=== PATIENT | female | born 1990 | race Caucasian/White ===

== ENCOUNTER 2019-06-16 19:42 | Emergency (ER) | payer SELFPAY ==
[~2019-06-16] VITALS: Ht 167.6 cm; Wt 95.5 kg
[~2019-06-16 19:42] MED LIST: DEPO-PROVER400 MG/ML IM; IRON325 MG PO; MOTRIN 400400 MG/TAB PO; RESPERIDOL; ZOFRAN 4MG T4 MG/TAB PO; ZOFRAN ODT4 MG PO
[2019-06-16 19:54] VITALS: BP 142/79; TEMP 97.8
[2019-06-16 21:21] VITALS: PULSE 67
== END 2019-06-16 21:21 | disposition home or self-care (01) ==
LOC: COL.ER 19:42
DX: S09.90XA Unspecified injury of head, initial encounter (principal); R40.2410 Glasgow coma scale score 13-15, unspecified time; F17.210 Nicotine dependence, cigarettes, uncomplicated; Z91.041 Radiographic dye allergy status; W22.8XXA Striking against or struck by other objects, initial encounter; Y92.69 Other specified industrial and construction area as the place of occurrence of the external cause; Y99.0 Civilian activity done for income or pay

== ENCOUNTER 2019-07-04 04:38 | Emergency (ER) | payer SELFPAY ==
[~2019-07-04] VITALS: Ht 170.2 cm; Wt 95.5 kg
[2019-07-04 04:47] VITALS: TEMP 97.7
[2019-07-04 05:15] LABS: BASO # 0.1 (0.0-0.2); BASO % 0.7 % (0.0-2.0); EOS # 0.2 (0.0-0.7); EOS % 1.2 % (0-4.0); GRAN # 6.4 (1.4-6.5); GRAN % 49.5 % (42.2-75.2); HEMATOCRIT 40.2 % (37.0-47.0); HEMOGLOBIN 13.1 g/dl (12.5-16.0); LYMPH # 5.1 (1.2-3.4); MEAN CELL VOLUME 88 fl (80.0-100.0); MEAN CORPUSCULAR HEMOGLOBIN 29 pg (27.0-31.0); MEAN CORPUSCULAR HGB CONC 33 g/dl (33.0-37.0); MEAN PLATELET VOLUME 9.2 fl (7.4-10.4); MONO # 1.2 (0.1-0.6); MONO % 9.2 % (1.7-9.3); PLATELET COUNT 348 K/mm3 (130-400); RED BLOOD COUNT 4.56 M/mm3 (4.10-5.30); REDCELL DISTRIBUTION WIDTH-CV 14.6 % (11.5-14.5)
[2019-07-04 05:28] LABS: ALANINE AMINOTRANSFERASE 21 U/L (9-52); ALKALINE PHOSPHATASE 97 U/L (50-136); ANION GAP 10 mmol/L (7-16); AST,SGOT 23 U/L (15-37); BILIRUBIN,TOTAL 0.3 mg/dL (0.0-1.0); BLOOD UREA NITROGEN 8 mg/dL (7-17); CALCIUM 9.1 mg/dL (8.4-10.2); CARBON DIOXIDE 22 mmol/L (22-30); CHLORIDE 108 mmol/L (98-107); CREATININE, serum 0.79 (0.52-1.25); GLUCOSE 99 mg/dL (74-106); LIPASE 86 U/L (23-300); SODIUM 140 mmol/L (137-145); TOTAL PROTEIN 7.5 gm/dL (6.4-8.2)
[2019-07-04 05:40] LABS: TROPONIN-I < 0.012 ng/mL (0.000-0.035)
[2019-07-04 06:45] VITALS: BP 118/65; PULSE 76
[2019-07-04] MEDS ORDERED: PROTONIX 40MG T40 MG PO (07:01)
== END 2019-07-04 07:10 | disposition home or self-care (01) ==
LOC: COL.ER 04:38
PROVIDERS: Emergency Medicine
DX: R07.9 Chest pain, unspecified (principal); R11.10 Vomiting, unspecified; D64.9 Anemia, unspecified; F17.210 Nicotine dependence, cigarettes, uncomplicated
CPT/HCPCS: J1200; J2550; J7030

== ENCOUNTER 2019-09-14 07:05 | Day surgery (SDC) | payer OTHER ==
[~2019-09-14] VITALS: Ht 167.6 cm; Wt 92.0 kg
[~2019-09-14 07:05] MED LIST changes: +CIPRO 500MG TA500 MG PO; +FLAGYL500 MG PO; +PHENERGAN25 MG RC; +PROTONIX 40MG T40 MG PO
[2019-09-14] MEDS ORDERED: VIVLODEX5 MG PO (07:35)
[2019-09-14] MEDS ORDERED: WELLBUTRIN SR200 MG (07:36)
[2019-09-14] MEDS ORDERED: PRIL40 PO (07:37)
[2019-09-14] MEDS ORDERED: ULTRAM 50MG TAB50 MG (07:37)
[2019-09-14] MEDS ORDERED: FLEXERIL 1010 MG/TAB (07:38)
[2019-09-14 07:40] VITALS: BP 124/74; PULSE 86; TEMP 98.8
[2019-09-14 08:50] VITALS: BP 124/88; PULSE 83; TEMP 97.6
--- NOTE | 2019-09-14 08:50 | NUR ---
Patient returned from [facility] to [facility] [address] via cart. Ambulated to bathroom with one assist. Placed on monitors, vital signs stable. Denies any pain or nausea. Patient requests juice and apple sauce. Report recieved from Dottie DONIS. Warm blanket provided. Call wilson within reach. Will continue to monitor.
[2019-09-14 09:05] VITALS: BP 128/58; PULSE 78
--- NOTE | 2019-09-14 09:05 | NUR ---
Patient eating and drinking without difficulty. Denies pain or nausea. Awaiting Dr. Casiano to speak with patient. Will continue to monitor.
[2019-09-14 09:20] VITALS: BP 115/66; PULSE 77
--- NOTE | 2019-09-14 09:20 | NUR ---
Patient states she does not want to wait to speak with Dr. Barney. Looking to leave at this time. Discharge instructions reviewed with patient. All questions answered. Vital signs stabble. IV removed from right hand without difficulty. Patient to get dressed at this time.
--- NOTE | 2019-09-14 09:43 | NUR ---
made aware that patient would be coming downstairs to patient entrance. Nito in parking lot. Patient brought down to lobby via wheel chair. Patient to drive her home. All belongings in hand.
--- NOTE | 2019-09-14 10:00 | NUR ---
Jewelry found in patients room following discharge. Patients called. Says he can come picket [employer] soon. Jewelry placed in bag with patient label on front. Handed to registration for patient to claim.
== END 2019-09-14 09:43 | disposition home or self-care (01) ==
LOC: SDCO 07:05
DX: K59.00 Constipation, unspecified (principal); R19.7 Diarrhea, unspecified; K21.9 Gastro-esophageal reflux disease without esophagitis; Z88.3 Allergy status to other anti-infective agents; F17.210 Nicotine dependence, cigarettes, uncomplicated; F32.9 Major depressive disorder, single episode, unspecified; F43.10 Post-traumatic stress disorder, unspecified
CPT/HCPCS: J2704; J7030

== ENCOUNTER 2020-04-06 14:24 | Emergency (ER) | payer OTHER ==
[~2020-04-06] VITALS: Ht 167.6 cm; Wt 95.5 kg
[~2020-04-06 14:24] MED LIST changes: +FLEXERIL 1010 MG/TAB; +PRIL40 PO; +ULTRAM 50MG TAB50 MG; +VIVLODEX5 MG PO; +WELLBUTRIN SR200 MG
[2020-04-06 16:20] VITALS: BP 145/76; PULSE 82; TEMP 97.9
== END 2020-04-06 16:24 | disposition home or self-care (01) ==
LOC: COL.ER 14:24
DX: B34.9 Viral infection, unspecified (principal); M79.7 Fibromyalgia; F17.200 Nicotine dependence, unspecified, uncomplicated; Z20.828 Contact with and (suspected) exposure to other viral communicable diseases; Z91.041 Radiographic dye allergy status
CPT/HCPCS: J2405; J7030

== ENCOUNTER 2021-07-27 04:05 | Emergency (ER) | payer SELFPAY ==
[~2021-07-27] VITALS: Ht 170.2 cm; Wt 104.5 kg
[2021-07-27 04:11] VITALS: TEMP 97.7
[2021-07-27 04:28] LABS: BASO # 0.1 K/mm3 (0.0-0.2); BASO % 0.7 % (0.0-2.0); EOS # 0.1 K/mm3 (0.0-0.7); EOS % 0.7 % (0.0-4.0); GRAN # 7.9 K/mm3 (1.4-6.5); GRAN % 70.3 % (42.2-75.2); HEMATOCRIT 39.6 % (37.0-47.0); HEMOGLOBIN 13.6 g/dl (12.5-16.0); LYMPH # 2.2 K/mm3 (1.2-3.4); LYMPH % 19.3 % (20.0-51.0); MEAN CELL VOLUME 86 fl (80.0-100.0); MEAN CORPUSCULAR HEMOGLOBIN 30 pg (27-31); MEAN CORPUSCULAR HGB CONC 34 g/dl (33.0-37.0); MEAN PLATELET VOLUME 9.6 fl (7.4-10.4); MONO % 8.5 % (1.7-9.3); PLATELET COUNT 357 K/mm3 (130-400); REDCELL DISTRIBUTION WIDTH-CV 13.9 % (11.5-14.5)
[2021-07-27 04:44] LABS: ALBUMIN 3.9 gm/dL (3.5-5.0); BILIRUBIN,TOTAL 0.5 mg/dL (0.2-1.2); CALCIUM 8.7 mg/dL (8.4-10.2); CREATININE, serum 0.92 mg/dL (0.57-1.11); POTASSIUM 3.5 mmol/L (3.5-4.5); TOTAL PROTEIN 7.6 gm/dL (6.2-8.1)
[2021-07-27] MEDS ORDERED: ZOFRAN ODT4 MG PO (05:35)
[2021-07-27 05:39] VITALS: BP 122/84; PULSE 56
== END 2021-07-27 05:50 | disposition home or self-care (01) ==
LOC: COL.ER 04:05
PROVIDERS: Emergency Medicine
DX: R11.2 Nausea with vomiting, unspecified (principal); R10.13 Epigastric pain
CPT/HCPCS: J2405; J2550; J7030

== ENCOUNTER 2021-12-20 09:09 | Emergency (ER) | payer SELFPAY ==
[~2021-12-20] VITALS: Ht 170.2 cm; Wt 100.0 kg
[2021-12-20 09:20] VITALS: BP 144/83; PULSE 124
[2021-12-20] MEDS ORDERED: ATARAX 25MG25 MG/TAB PO (09:46)
[2021-12-20] MEDS ORDERED: RISPERDAL 0.5M0.5 MG PO (09:46)
[2021-12-20] MEDS ORDERED: LYRICA 50MG CAP50 MG PO (09:46)
[2021-12-20] MEDS ORDERED: MOBIC 7.5MG7.5 MG PO (09:48)
== END 2021-12-20 11:30 | disposition home or self-care (01) ==
LOC: COL.ER 09:09
DX: S61.411A Laceration without foreign body of right hand, initial encounter (principal); W22.8XXA Striking against or struck by other objects, initial encounter